=== PATIENT | female | born 1945 | race Caucasian/White ===

== ENCOUNTER 2018-03-23 13:01 | Inpatient (IN) | payer MEDICARE, MEDICAID ==
[~2018-03-23] VITALS: Ht 165.1 cm; Wt 51.3 kg
[2018-03-23] VITALS (7 sets, daily range): BP systolic 135–203; BP diastolic 55–94
[~2018-03-23 13:01] MED LIST: ASPIRIN EC325 MG PO; BACTRIM DS1 TAB PO; CEPHALEXIN500 MG PO; COMBIVENT RESPIMAT IN; LISINOP/HCTZ1 TAB PO; PROAIR HFA IN
[2018-03-23 14:17] LABS: HEMATOCRIT 34.8 % (37.0-47.0); HEMOGLOBIN 10.7 g/dl (12.0-16.0); IMMATURE GRANULOCYTES 0.5 % (0.0-5.0); MEAN CELL VOLUME 95.3 fL CALC (80.0-100.0); MEAN CORPUSCULAR HGB 29.3 pG CALC (26.0-32.0); MEAN CORPUSCULAR HGB CONC 30.7 g/L CALC (32.0-36.0); NEUT# 5.62 thou/uL (2.00-7.15); RED BLOOD COUNT 3.65 mill/uL (4.20-5.60); RED CELL DISTRI WIDTH 15.4 % (11.5-15.5)
[2018-03-23 14:32] LABS: ANION GAP 14 (6-22 (CALC)); BUN 17 mg/dL (8-23); BUN/CREATININE RATIO 34 (12-20 (CALC)); CARBON DIOXIDE 26 mmol/l (22-30); CHLORIDE 104 mmol/l (95-108); CREATININE 0.5 mg/dL (0.5-1.0); GFR > 60 ML/MIN (>=60 (CALC)); GFR FOR AFR.AMER. > 60 ML/MIN (>=60 (CALC)); POTASSIUM 4.7 mmol/l (3.5-5.1); SODIUM 139 mmol/l (137-146)
[2018-03-23] MEDS ORDERED: ASPIRIN81 MG PO (17:28)
[2018-03-23] MEDS ORDERED: FUROSEMIDE40 MG PO (17:29)
[2018-03-23] MEDS ORDERED: KLOR-CON M1010 MEQ PO (17:29)
[2018-03-23] MEDS ORDERED: COREG3.125 MG PO (17:30)
[2018-03-23] MEDS ORDERED: CLOPIDOGREL75 MG PO (17:30)
[2018-03-23] MEDS ORDERED: MECLIZINE25 MG PO (17:31)
[2018-03-23] MEDS ORDERED: FAMOTIDINE20 M1 PO (17:32)
[2018-03-23] MEDS ORDERED: NOVOLIN R100 UNIT/M (17:33)
[2018-03-23] MEDS ORDERED: LISINOP/HCTZ1 TA1 PO (20:57)
[2018-03-24] VITALS (41 sets, daily range): BP systolic 97–234; BP diastolic 52–119
[2018-03-24 05:05] LABS: MEAN CELL VOLUME 94.8 fL CALC (80.0-100.0); MEAN CORPUSCULAR HGB 29.3 pG CALC (26.0-32.0); MEAN CORPUSCULAR HGB CONC 30.9 g/L CALC (32.0-36.0); RED BLOOD COUNT 2.9 mill/uL (4.20-5.60); RED CELL DISTRI WIDTH 15.2 % (11.5-15.5)
[2018-03-24 05:17] LABS: HEMATOCRIT 27.5 % (37.0-47.0); HEMOGLOBIN 8.5 g/dl (12.0-16.0)
[2018-03-24 06:10] LABS: ANION GAP 11 (6-22 (CALC)); BUN 20 mg/dL (8-23); BUN/CREATININE RATIO 46 (12-20 (CALC)); CARBON DIOXIDE 28 mmol/l (22-30); CHLORIDE 104 mmol/l (95-108); CREATININE 0.4 mg/dL (0.5-1.0); GFR > 60 ML/MIN (>=60 (CALC)); GFR FOR AFR.AMER. > 60 ML/MIN (>=60 (CALC)); POTASSIUM 4.2 mmol/l (3.5-5.1); SODIUM 139 mmol/l (137-146)
[2018-03-25] VITALS (26 sets, daily range): BP systolic 93–213; BP diastolic 51–87
[2018-03-25 05:10] LABS: HEMATOCRIT 31.5 % (37.0-47.0); HEMOGLOBIN 9.7 g/dl (12.0-16.0); IMMATURE GRANULOCYTES 0.3 % (0.0-5.0); MEAN CELL VOLUME 95.2 fL CALC (80.0-100.0); MEAN CORPUSCULAR HGB 29.3 pG CALC (26.0-32.0); MEAN CORPUSCULAR HGB CONC 30.8 g/L CALC (32.0-36.0); NEUT# 9.91 thou/uL (2.00-7.15); RED BLOOD COUNT 3.31 mill/uL (4.20-5.60); RED CELL DISTRI WIDTH 15.5 % (11.5-15.5)
[2018-03-25 05:41] LABS: ANION GAP 14 (6-22 (CALC)); BUN 32 mg/dL (8-23); BUN/CREATININE RATIO 71 (12-20 (CALC)); CARBON DIOXIDE 27 mmol/l (22-30); CHLORIDE 101 mmol/l (95-108); CREATININE 0.4 mg/dL (0.5-1.0); GFR > 60 ML/MIN (>=60 (CALC)); GFR FOR AFR.AMER. > 60 ML/MIN (>=60 (CALC)); POTASSIUM 3.4 mmol/l (3.5-5.1); SODIUM 139 mmol/l (137-146)
== END 2018-03-25 15:05 | disposition short-term general hospital (02) | DRG 291 ==
LOC: ED 13:01 → ED-I 17:10 → ED 17:22 → ICU 17:23
PROVIDERS: Family Medicine; ADMIT Internal Medicine; ATTEND Internal Medicine
PROC: 5A09357 Assistance with Respiratory Ventilation, Less than 24 Consecutive Hours, Continuous Positive Airway Pressure (ICD-10-PCS; principal; 2018-03-23)
PROC: 0BH17EZ Insertion of Endotracheal Airway into Trachea, Via Natural or Artificial Opening (ICD-10-PCS; 2018-03-25)
PROC: 5A1935Z Respiratory Ventilation, Less than 24 Consecutive Hours (ICD-10-PCS; 2018-03-25)
DX: I11.0 Hypertensive heart disease with heart failure (principal); J96.02 Acute respiratory failure with hypercapnia; J96.01 Acute respiratory failure with hypoxia; J44.1 Chronic obstructive pulmonary disease with (acute) exacerbation; I50.9 Heart failure, unspecified; I16.0 Hypertensive urgency; E11.51 Type 2 diabetes mellitus with diabetic peripheral angiopathy without gangrene; I25.10 Atherosclerotic heart disease of native coronary artery without angina pectoris; T50.1X6A Underdosing of loop [high-ceiling] diuretics, initial encounter; Z91.128 Patient's intentional underdosing of medication regimen for other reason; I25.2 Old myocardial infarction; Z95.820 Peripheral vascular angioplasty status with implants and grafts; Z87.891 Personal history of nicotine dependence
CPT/HCPCS: J1650; J2060; Q9967; S0164

== ENCOUNTER 2018-04-09 09:26 | Emergency (ER) | payer MEDICARE, MEDICAID ==
[~2018-04-09] VITALS: Ht 165.1 cm; Wt 50.0 kg
[~2018-04-09 09:26] MED LIST changes: +ASPIRIN81 MG PO; +CLOPIDOGREL75 MG PO; +COREG3.125 MG PO; +FAMOTIDINE20 M1 PO; +FUROSEMIDE40 MG PO; +KLOR-CON M1010 MEQ PO; +LISINOP/HCTZ1 TA1 PO; +MECLIZINE25 MG PO; +NOVOLIN R100 UNIT/M
[2018-04-09] MEDS ORDERED: COMBIVENT RESPIMAT IN (10:07)
[2018-04-09] MEDS ORDERED: HYDROCO/APAP1 TA9 PO (10:07)
[2018-04-09] MEDS ORDERED: HYDROCHLOROT12.5 MG PO (10:08)
[2018-04-09] MEDS ORDERED: ACIDOPHILU4 PO (10:08)
[2018-04-09] MEDS ORDERED: DOXYCYCL HYC100 MG PO (10:09)
[2018-04-09] MEDS ORDERED: PREDNISONE10 MG PO (10:09)
[2018-04-09] MEDS ORDERED: B COMPLE2 PO (10:10)
[2018-04-09] MEDS ORDERED: MULTIVITAMIN PO (10:10)
[2018-04-09] MEDS ORDERED: LISINOPRIL20 MG PO (10:12)
[2018-04-09 11:05] LABS: HEMATOCRIT 35.1 % (37.0-47.0); HEMOGLOBIN 10.9 g/dl (12.0-16.0); IMMATURE GRANULOCYTES 5.5 % (0.0-5.0); MEAN CELL VOLUME 93.1 fL CALC (80.0-100.0); MEAN CORPUSCULAR HGB 28.9 pG CALC (26.0-32.0); MEAN CORPUSCULAR HGB CONC 31.1 g/L CALC (32.0-36.0); NEUT# 12.58 thou/uL (2.00-7.15); RED BLOOD COUNT 3.77 mill/uL (4.20-5.60); RED CELL DISTRI WIDTH 16.1 % (11.5-15.5)
[2018-04-09 11:13] LABS: ALBUMIN 3.6 g/dL (3.2-5.0); ALKALINE PHOSPHATASE 127 u/l (38-126); ANION GAP 17 (6-22 (CALC)); BILIRUBIN, TOTAL 0.3 mg/dL (0.0-1.4); BUN 23 mg/dL (8-23); BUN/CREATININE RATIO 68 (12-20 (CALC)); CARBON DIOXIDE 28 mmol/l (22-30); CHLORIDE 100 mmol/l (95-108); CREATININE 0.3 mg/dL (0.5-1.0); GFR > 60 ML/MIN (>=60 (CALC)); GFR FOR AFR.AMER. > 60 ML/MIN (>=60 (CALC)); SGOT/AST 26 u/l (9-36); SODIUM 140 mmol/l (137-146); TOTAL PROTEIN 6.8 g/dL (6.3-8.2)
[2018-04-09 11:17] LABS: POTASSIUM 4.7 mmol/l (3.5-5.1)
[2018-04-09 11:18] LABS: URINE BILIRUBIN - DIPSTICK NEGATIVE (NEGATIVE); URINE BLOOD DIPSTICK TRACE-INTACT (NEGATIVE); URINE COLOR YELLOW; URINE GLUCOSE - DIPSTICK NEGATIVE (NEGATIVE); URINE KETONE NEGATIVE (NEGATIVE); URINE LEUK ESTERASE NEGATIVE (NEGATIVE); URINE NITRITE - DIPSTICK NEGATIVE (Negative); URINE PH 7.5 (4.5-8.0); URINE PROTEIN - DIPSTICK NEGATIVE (NEG-TRACE); URINE SPECIFIC GRAVITY 1.015; URINE UROBILINOGEN - DIPSTICK 0.2 E.U./dL (0.2)
[2018-04-09 14:10] VITALS: BP 110/81
== END 2018-04-09 14:10 | disposition short-term general hospital (02) ==
LOC: ED 09:26
PROVIDERS: Emergency Medicine
DX: T82.332A Leakage of femoral arterial graft (bypass), initial encounter (principal); R07.9 Chest pain, unspecified; E11.9 Type 2 diabetes mellitus without complications; R06.02 Shortness of breath; I10 Essential (primary) hypertension; J44.9 Chronic obstructive pulmonary disease, unspecified; L89.153 Pressure ulcer of sacral region, stage 3; Y83.2 Surgical operation with anastomosis, bypass or graft as the cause of abnormal reaction of the patient, or of later complication, without mention of misadventure at the time of the procedure; Z86.14 Personal history of Methicillin resistant Staphylococcus aureus infection
CPT/HCPCS: Q9967